=== PATIENT | female | born 1965 | race Caucasian/White ===

== ENCOUNTER 2025-04-23 15:15 | Outpatient (RCR) | payer OTHER, SELFPAY ==
--- NOTE | 2025-04-10 15:20 | HO.PHP ---
Client's case was reviewed and opened in teams.
[2025-04-11 10:51] VITALS: BP 96/60; PULSE 76; TEMP 36.3
[2025-04-11 10:55] VITALS: BMI 25.2
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
--- NOTE | 2025-04-23 19:13 | HO.PHPPROGNO ---
Subjective Subjective Date of Service: 04/23/25 Reason For Visit: PTSD Interim History: Patient seen for follow-up, anticipating discharge at the end of program today. Feeling 'okay' today. She feels like the PHP has helped get her into a routine and work towards her future goals without getting so overwhelmed. She's been socializing with friends, taking walks after isolating prior to attending [facility] She's gained some weight and has some concerns about continued weight gain w/ the Seroquel 50 mg (went from 136 to 142 lb in hospital); however she notes that her appetite has also increased due to exercising again. She's planning to cut down on snacking and will f/u with her outpatient provider on monitoring her weight. She's been sleeping well. Denies any other concerns for med SE. Taking psychotropic meds as rx'd- Lamotrigine 50 mg qd Seroquel 50 mg qhs Doesn't need med refills since she'll see Thuan Yanes psychiatric specialist this 04/25. Pt denies SI or thoughts of self harm Denies violent ideation Denies any sx concerning for psychosis or azra Attending Groups: Yes Mental Status Exam Mental Status Exam Narrative: Appearance: Casually dressed. Grooming/hygiene wnl. Good eye contact Attitude:Cooperative Speech: Fluent and wnl in regard to volume, tone, prosody Motor activity: Calm and without any tics, tremors or dyskinesias. Steady gait Mood: as noted above Affect: appropriate, reactive, generally bright Thought process: goal directed and without evidence of formal thought disorder Thought content: as noted above. Future oriented Perception: Denies AH/VH and does not appear to respond to internal stimuli Alert/oriented in all spheres Cognition grossly intact Insight: intact Judgment: intact Diagnostics Vital Signs (24Hr): BMI result Body Mass Index 25.2 Assessment & Plan Assessment & Plan (1) Bipolar affective disorder, depressed, severe: Status: Acute Code(s): F31.4 - Bipolar disorder, current episode depressed, severe, without psychotic features Plan Discharge from [facility] Continue current medications. Pt does not need refills before her appointment w/ outpatient psychiatric provider on Monday Will defer further medication management to outpatient provider *Safety plan reviewed *Discharge diagnoses, treatment course, discharge plan have been reviewed with patient (including medication regime, medication management, potential side effects) as well as treatment rationale were also revisited *Discharge paperwork signed and given to patient, copy sent for scanning to chart Informed Consent: understands Reason for contiued partial hosp. stay Substantial Risk for: stable for discharge Certification I certify that partial hospital treatment is medically necessary due to the symptoms and problems resulting from the patient's mental illness and the failure to treat the patient at the partial hospital level of care would likely result in the patient requiring inpatient psychiatric care which could not be prevented at a less intensive level of care. Total time managing care of this patient on day of service: 45 minutes (FTF time with pt, chart review) Discharge Plan Discharge Attending provider: Cristin Cooley Medications: Continued sennosides [senna] 8.6 mg Tablet 8.6 mg PO BEDTIME polyethylene glycol 3350 17 gram Powder In Packet 17 g PO DAILY lamotrigine 25 mg Tablet See Rx Instructions .ROUTE .COMPLEX Rx Instructions: Increased dose to 50 mg on 04/12/25 lorazepam 1 mg Tablet 1 mg PO BEDTIME bisacodyl 5 mg Tablet 5 mg PO BEDTIME PRN (Reason: Constipation) quetiapine 50 mg Tablet 50 mg PO BEDTIME Patient Education: Bipolar Disorder (ED), PTSD (Post Traumatic Stress Disorder) (ED) Print Language: Hebrew
== END 2025-04-23 23:59 | disposition home or self-care (01) ==
LOC: HO.PHPA 15:15
PROVIDERS: Visit Provider Psychiatry & Neurology Psychiatry
DX: F31.4 Bipolar disorder, current episode depressed, severe, without psychotic features (principal); F50.9 Eating disorder, unspecified; Z91.51 Personal history of suicidal behavior; Z79.899 Other long term (current) drug therapy
CPT/HCPCS: 90791; 90853